=== PATIENT | female | born 1980 | race Caucasian/White ===

== ENCOUNTER 2016-04-05 03:37 | Emergency (ER) ==
[2016-04-05] MEDS ORDERED: PEN VK PO ONE (03:49)
[2016-04-05] MEDS ORDERED: NORCO-7.5 PO ONE (03:49)
--- NOTE | 2016-04-05 03:51 | PROVIDER DOCUMENTATION ---
HPI-EENT General - General Chief Complaint: Toothache Stated Complaint: TOOTH ACHE Time Seen by Provider: 04/05/16 03:45 Source: patient Allergies/Adverse Reactions: Patient Allergies Allergy/AdvReac Type Severity Reaction Status Date / Time No Known Allergies Allergy Verified 04/05/16 03:44 - History of Present Illness-EENT General Nature of Presenting Problem: pt states the her right lower 1st molar has been broken for a long time and started to hurt about 2 weeks ago then in the last day the pain became much worse and she developed swelling there as well, No fevers. She has tried all available OTC medicines without relief Review of Systems - Adult - REVIEW OF SYSTEMS - ADULT Constitutional: denies: chills, fever Eyes: denies: discharge, blurred vision Ears, Nose, Mouth & Throat: reports: see HPI. denies: ear pain, sinus problem, throat pain Respiratory: denies: cough, shortness of breath Gastrointestinal: denies: abdominal pain, diarrhea, nausea, vomiting Musculoskeletal: denies: muscle aches Integumentary: denies: rash Neurological: denies: headache/migraines, numbness, paresthesia, slurred speech All Other Systems: Reviewed and Negative Past History - Adult - PAST MEDICAL HISTORY-ADULT Review of Records: reports: Old Records Reviewed, Nursing Assessment Review, Medications Reviewed, Social history reviewed & non-contributory. Major Childhood Illnesses: reports: denies history Psychiatric: reports: depression - PRIOR SURGERIES/PROCEDURES Surgical/Procedure History: reports: - IMMUNIZATION STATUS Childhood Immunizations: See Nurse Assessment Flu Vaccine: See Nurse Assessment - FAMILY HISTORY Family History: reviewed, not pertinent Physical Exam- EENT - Physical Exam EENT Initial Vital Signs Reviewed: Yes General Appearance: alert, mild distress (from pain) Neck: non-tender, full range of motion, supple, normal inspection, other (pt's 1st lower right molar is broken off with surrounding gum swelling and mild swelling about the right jaw line) Integumentary: normal color, normal turgor, warm/dry Neurologic: grossly normal, no motor/sensory deficits Psych/Mental Status: normal mood/affect, normal thought content, normal thought process, oriented x 3 Progress - PLAN OF CARE/RESULTS Progress/Plan/Lab Results: Orders Category Date Time Status Hydrocodone/APAP 7.5 mg/325 mg [Dudley-7.5] Med 04/05/16 03:49 Discontinued 1 each PO NOW ONE Penicillin V Potassium [Pen Vk] Med 04/05/16 03:49 Discontinued 500 mg PO NOW ONE Vital Signs Temp Pulse Resp BP Pulse Ox 04/05/16 03:41 98.0 F 105 H 20 149/104 100 No Known Allergies Allergy (Verified 04/05/16 03:44) Hydrocodone/Acetaminophen [Dudley 5-325 Tablet] 1 each PO Q4-6H PRN PRN #14 tablet 04/05/16 Penicillin V Potassium [Pen Vk] 500 mg PO Q6HR #80 tablet 04/05/16 Departure - Departure Time of Disposition Order: 03:50 DIAGNOSIS: Dental abscess Disposition: HOME 01 Certified Medical Emergency: Emergent Condition: Fair Additional Instructions: call your dentist to arrange follow up ED Follow Up Instructions: You have been treated by a care provider in the Emergency Department. These instructions are being provided to you so you can have an understanding of how to care for yourself upon discharge. Upon discharge from the Emergency Department, you are responsible for making arrangements for follow-up care by a physician of your choice. Take all prescribed medications as directed. Return to the Emergency Department immediately for any new or worsening symptoms. You may call the Physician Referral phone number at [phone] to obtain a list of Physicians who are taking new patients. Prescriptions: Hydrocodone/Acetaminophen [Dudley 5-325 Tablet] 1 each PO Q4-6H PRN PRN #14 tablet PRN Reason: Pain Penicillin V Potassium [Pen Vk] 500 mg PO Q6HR #80 tablet Referrals: None,PCP [Primary Care Provider] -
[2016-04-05 04:15] VITALS: BP 147/89
== END 2016-04-05 04:15 | disposition home or self-care (01) ==
LOC: P.ED 03:37
DX: K04.7 Periapical abscess without sinus (principal); K08.89 Other specified disorders of teeth and supporting structures; R22.0 Localized swelling, mass and lump, head; S02.5XXA Fracture of tooth (traumatic), initial encounter for closed fracture
CPT/HCPCS: 99282